=== PATIENT | female | born 1955 | race Caucasian/White ===

== ENCOUNTER → 2017-08-10 | Day surgery (SDC) | payer BC ==
[~2017-08-10] MED LIST: Lactated Ringers 1,000 ML IV SCH; Propofol 200 MG/20 ML SDV IV ONE
--- NOTE | 2017-08-13 09:23 | OR ---
DATE OF OPERATION: 08/10/2017 PREOPERATIVE DIAGNOSIS: ABDOMINAL BLOATING. POSTOPERATIVE DIAGNOSIS: ABDOMINAL BLOATING. SURGEON: Dangelo Munoz MD PROCEDURE: 1. COLONOSCOPY WITH BIOPSY X1. 2. POLYP REMOVAL X1. ANESTHESIA: [employer]. COMPLICATIONS: None. SPECIMEN: 1. Colon biopsy hepatic flexure. 2. Small villous adenoma, sigmoid colon. FINDINGS: 1. Full-length colonoscopy. 2. Mild nonspecific focal colitis, hepatic flexure. 3. Small villous inflammatory adenoma, sigmoid colon. RECOMMENDATIONS: Followup colonoscopy in 5 years. Follow up with Ana Diego for path reports. INDICATIONS: The patient has been having some ongoing issues with abdominal bloating and occasional diarrhea. the patient has never had a prior colonoscopy. Ana Diego referred her for such. DESCRIPTION OF PROCEDURE: The patient was prepped and draped, placed in the left lateral decubitus position. A lubricated Olympus colonoscope was inserted and easily advanced to the cecum. Direct visualization of the ileocecal valve and appendiceal orifice were accomplished. The bowel prep was excellent. Upon withdrawal of the scope, the cecum and ascending colon were benign. Right at the hepatic flexure, the patient had a small focal area of nonspecific and very mild colitis, a biopsy of that was taken. The transverse colon was benign as was the descending colon. Throughout the sigmoid area, I found no signs of any worrisome vascular abnormalities or signs of colitis. There were no bleeding sites or significant diverticula. The patient did have 1 small villous adenoma in the mid sigmoid colon looked almost like an inflammatory polyp, very friable. We removed it with 2 cold forceps biopsies without complication. Resolution of bleeding was spontaneous. The rest of the sigmoid and rectosigmoid junction were unremarkable. The rectal vault appeared benign. The patient has a very shallow rectal vault, I could not retroflex in there, but upon withdrawal under direct exam, I could see no perianal lesions. Air was suctioned and scope removed without complication. MULUGETA/GIULIANO /[id number]
== END ==
LOC: CC.SDS 11:29
PROVIDERS: ATTEND Family Medicine
DX: K51.40 Inflammatory polyps of colon without complications (principal); K52.9 Noninfective gastroenteritis and colitis, unspecified; I10 Essential (primary) hypertension; Z79.82 Long term (current) use of aspirin; Z79.899 Other long term (current) drug therapy; Z80.49 Family history of malignant neoplasm of other genital organs
CPT/HCPCS: J2704; J7120

== ENCOUNTER → 2023-07-13 | Day surgery (SDC) | payer MEDICARE, OTHER ==
[~2023-07-13] MED LIST changes: +Ketamine 200 MG/20 ML MDV ONE; -Propofol 200 MG/20 ML SDV IV ONE; +Propofol 200 MG/20 ML SDV ONE; +fentaNYL 50 MCG/ML SDV ONE
== END ==
LOC: CC.SDS 10:30
PROVIDERS: ATTEND Family Medicine
DX: Z12.11 Encounter for screening for malignant neoplasm of colon (principal); K57.30 Diverticulosis of large intestine without perforation or abscess without bleeding; K63.5 Polyp of colon; I10 Essential (primary) hypertension; E87.6 Hypokalemia; M85.852 Other specified disorders of bone density and structure, left thigh; Z79.899 Other long term (current) drug therapy; Z20.822 Contact with and (suspected) exposure to COVID-19
CPT/HCPCS: 00812; J2704; J3010; J3490; J7120